=== PATIENT | male | born 1950 | race Caucasian/White ===

== ENCOUNTER 2019-06-03 18:42 | Inpatient (IN) | payer OTHER, MEDICARE, SELFPAY | END 2019-06-18 14:00 | disposition home health service (06) | DRG 561 | PROVIDERS: Admitting Provider Psychiatry & Neurology Neurology; PCP Internal Medicine; Visit Provider Psychiatry & Neurology Neurology | DX: S72.142D Displaced intertrochanteric fracture of left femur, subsequent encounter for closed fracture with routine healing (principal); S32.412D Displaced fracture of anterior wall of left acetabulum, subsequent encounter for fracture with routine healing; S32.502D Unspecified fracture of left pubis, subsequent encounter for fracture with routine healing; S52.691D Other fracture of lower end of right ulna, subsequent encounter for closed fracture with routine healing; M16.12 Unilateral primary osteoarthritis, left hip; Z23 Encounter for immunization; V13.4XXD Pedal cycle driver injured in collision with car, pick-up truck or van in traffic accident, subsequent encounter | CPT/HCPCS: 36415; 70450; 73521; 80048; 85025; 85027; 87081; 93880; 93970; 97110; 97116; 97150; 97162; 97166; 97530; 97535; A9270 ==

== ENCOUNTER 2020-11-30 17:41 | Outpatient (CLI) | payer MEDICARE, SELFPAY ==
--- NOTE | ~2020-11-30 | XR_ITS ---
XR chest 2V DATE: 11/30/2020 18:00 INDICATION: Preoperative evaluation. Hypertension. TECHNIQUE: PA and lateral views COMPARISON: 09/23/2018 PA and lateral chest FINDINGS: Normal heart size. Mild aortic unfolding. No hilar or mediastinal enlargement. There is chronic discoid scarring at the lateral left lung base. No pulmonary infiltrate or consolidation, pleural effusion or pulmonary vascular congestion or pneumo thorax. IMPRESSION: No active cardiopulmonary disease or significant change since 10/05/2018 Reviewed, dictated and finalized at location A. IMPRESSION: No active cardiopulmonary disease or significant change since 2018
== END 2020-11-30 17:42 | disposition home or self-care (01) ==
LOC: CHSLAB 17:45
PROVIDERS: PCP Internal Medicine; Visit Provider Internal Medicine
DX: I10 Essential (primary) hypertension (principal); Z01.818 Encounter for other preprocedural examination; Z12.5 Encounter for screening for malignant neoplasm of prostate
CPT/HCPCS: 71046

== ENCOUNTER 2023-04-03 16:13 | Inpatient (IN) | payer MEDICARE, SELFPAY ==
[2023-04-03] VITALS (7 sets, daily range): BP systolic 148–178; BP diastolic 88–100; PULSE 69–110; RESP 16–20; TEMP 35.8–36.1; O2SAT 97–99; BMI 30.4
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
[2023-04-03] MEDS: HYDROcodone/acetaminophen (*CRX) 5-325 MG TABLET 1 TAB PO (19:18)
[2023-04-03] MEDS: TETANUS,DIPHTHERIA,AC PERTUSSIS ADULT (0.5 ML) BOOSTRIX IM (19:18)
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
[2023-04-03] MEDS: CYCLOBENZAPRINE HCL 10 MG TABLET PO (21:28)
[2023-04-03] MEDS: ceFAZolin 2 GM/D5W 50 ML 2 GM/50 ML BAG IVPB (22:03)
[2023-04-03 22:17] LABS: Basophils Absolute Auto 0.1 K/mm3 (0.0-0.1); Basophils Percent Auto 0.5 % (0.2-1.2); Eosinophils Absolute Auto 0.1 K/mm3 (0-0.3); Eosinophils Percent Auto 0.7 % (0-4.4); Hematocrit 44.9 % (42.0-52.0); Hemoglobin 15.2 g/dL (14.0-18.0); Immature Granulocyte Absolute 0.03 K/mm3 (0.00-0.031); Immature Granulocyte Percent A 0.3 % (0-0.5); Lymphocytes Absolute Auto 1.81 K/mm3 (0.9-3.2); Lymphocytes Percent Auto 17.5 % (18.3-44.2); Mean Corpuscular HGB Conc 33.9 g/dl (32-36); Mean Corpuscular Hemoglobin 33.7 pg (26-34); Mean Corpuscular Volume 99.6 fl (80-100); Mean Platelet Volume 9.6 fl (7.4-10.4); Monocytes Absolute Auto 0.8 K/mm3 (0.1-0.6); Monocytes Percent Auto 7.6 % (2.6-8.5); Neutrophils Absolute Auto 7.6 K/mm3 (1.3-6.7); Neutrophils Percent Auto 73.4 % (45.5-73.1); Platelet Count Result 201 k/mm3 (150-375); Red Blood Count 4.51 M/mm3 (4.6-6.20); Red Cell Distribution Width 12.9 % (11.5-14.5); White Blood Count 10.3 K/mm3 (4.5-10.0)
[2023-04-03 22:30] LABS: Appearance Urine Clear (Clear); Bacteria Urine None Seen /hpf; Bilirubin Urine Negative (Negative); Blood Urine Negative (Negative); Color Urine Dark Yellow (Yellow); Glucose Urine UA Negative (Negative); Ketones Urine Trace mg/dL (Negative); Leukocyte Esterase Ur Negative LEU/UL (Negative); Need Manual Microscopic Reviewed; Nitrate Urine Negative (Negative); Protein Urine 1+ mg/dL (Negative); RBC Urine 0-2 /hpf (0-2); Specific Grav Ur 1.035 (1.001-1.035); Squamous Epithelial Cell Urine None seen /hpf (Few); WBC Urine 0-5 /hpf; pH Urine 5.5 (5.0-9.0)
[2023-04-03 22:32] LABS: Alanine Aminotransferase 29 U/L (6-50); Albumin Level 4.6 g/dL (3.5-5.1); Alkaline Phosphatase 90 U/L (38-126); Anion Gap 5 mmol/L (8-16); Aspartate Amino Transferase 29 U/L (17-59); Bilirubin,Total 1.1 mg/dL (0.2-1.3); Blood Urea Nitrogen 18 mg/dL (9-20); Calcium 9.8 mg/dL (8.4-10.2); Carbon Dioxide 28 mmol/L (22-30); Chloride 107 mmol/L (98-107); Estimated CRCL calculation 82 ml/min; Estimated Glomerular Filt Rate > 60; Glucose 119 mg/dL (65-110); Potassium 3.8 mmol/L (3.4-5.0); Sodium 140 mmol/L (137-145)
[2023-04-03 22:37] LABS: Add Urine Microscopic? YES
[2023-04-03] MEDS: KETOROLAC 30 MG/ML VIAL (*BKC) IV PUSH (23:27)
[2023-04-04] VITALS (12 sets, daily range): BP systolic 115–163; BP diastolic 66–96; PULSE 61–82; RESP 16–20; TEMP 35.6–37.1; O2SAT 95–98
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
--- NOTE | 2023-04-04 00:34 | ADMGEN ---
This patient, Mitchel Jim, was admitted to [facility] Surg Room 321-02. Patient/family oriented to hospital policies and general routines including ID bracelet, bed and alarms, visiting hours, pain management, procedures, bathroom and other care routines, personal items, smoking policy, room service/diet, and visiting hours. Information on how to activate the Rapid Response Team has been discussed. Patient/Family are encouraged to report perceived risks to care and to ask questions if they do not understand what they are told or what they should do.
[2023-04-04] MEDS: KETOROLAC 30 MG/ML VIAL (*BKC) IV PUSH ×4 (01:42→23:22)
[2023-04-04] MEDS: ceFAZolin 2 GM/D5W 50 ML 2 GM/50 ML BAG IVPB ×3 (05:34→22:23)
--- NOTE | 2023-04-04 08:06 | PCPTNOTE ---
Waiting for ortho recommendation prior to PT evaluation. Will follow.
--- NOTE | 2023-04-04 08:46 | PCOTNOTE ---
Waiting for ortho recommendation prior to OT evaluation. Will follow.
--- NOTE | 2023-04-04 10:15 | PHAR ---
The patient's home med of Doxycycline 20mg has been verified.
--- NOTE | 2023-04-04 10:52 | PM.IMPN ---
Progress Note: A&P Assessment and Plan (1) Fracture of nasal bones: Qualifiers: Encounter type: initial encounter Fracture type: closed Qualified Code(s): S02.2XXA - Fracture of nasal bones, initial encounter for closed fracture Code(s): S02.2XXA - Fracture of nasal bones, initial encounter for closed fracture Status: Acute Assessment and Plan: Continue pain management. Consult ENT for further management. (2) Open olecranon fracture: Qualifiers: Encounter type: initial encounter Laterality: right Open fracture type: open type I or II Qualified Code(s): S52.021B - Displaced fracture of olecranon process without intraarticular extension of right ulna, initial encounter for open fracture type I or II Code(s): S52.023B - Displaced fracture of olecranon process without intraarticular extension of unspecified ulna, initial encounter for open fracture type I or II Status: Acute Assessment and Plan: XR reveals?transversely oriented fracture line in the olecranon extending to the joint surface without displacement.? Continue pain management. Consult Orthopedic surgery for further management. Continue cefazolin 2 g IV q.8 hours orthopedic surgeon plans irrigation of the would (3) Hypertension: Code(s): I10 - Essential (primary) hypertension Status: Acute Assessment and Plan: Resume home BP meds. Monitor BP. Plan Code status full code. Admitted to Med surge unit as an observation. DVT prophylaxis with Lovenox. Subjective Date/time seen: 04/04/23 10:52 Interval history: I saw and examined patient today Patient feels better, pain is controlled, patient is afebrile, hemodynamically stable, denies dyspnea, no new issue events overnight Exam Narrative: GENERAL: Well-appearing, in no acute distress. HEAD: Normocephalic EYES: PERRLA, EOMI. No pain with EOMs. ENT: Nose with swelling and tenderness to the nasal bridge. Nose deviated to the L. Ecchymosis to the medial canthus and inferior to the orbit. Mucous membranes moist. Oropharynx without tonsillar hypertrophy exudate or other lesions. No fractured teeth. NECK: Supple. No midline spinous tenderness, step-offs or deformities. BACK: No midline spinous tenderness, step-offs or deformities. No overlying skin changes. CHEST: No respiratory distress. Clear to auscultation, no adventitious breath sounds. No chest wall tenderness. HEART: Regular rate and rhythm. No murmur heard. Normal peripheral pulses. ABDOMEN: Soft, nontender, normal active bowel sounds. EXTREMITIES: Tenderness overlying the proximal right humerus with full range of motion of shoulder. Tenderness to R olecranon with edema and overlying 1cm laceration. Ecchymosis to dorsum of third and second metacarpals with tenderness. Full range of motion of fingers. Full range of motion of SKIN: Multiple abrasions scattered throughout bilateral upper and lower extremities. 1 cm laceration over the right olecranon with mild bleeding, measuring ~1cm deep. NEURO: No focal deficits. Alert and oriented x3. Cranial nerves II through XII intact. Strength 5/5 in BUE and BLE. Sensation intact throughout. PSYCH: Normal mood and affect. Objective Data Vital Signs Vital Signs: Vital Signs - 24 hr 04/03/23 16:18 04/03/23 18:28 04/03/23 18:28 Temperature 97 F L Pulse Rate 110 H 81 81 Respiratory Rate 20 18 Blood Pressure 178/94 H 165/88 H Pulse Oximetry 97 99 Oxygen Delivery Room Air 04/03/23 20:00 04/03/23 21:00 04/03/23 22:00 Temperature Pulse Rate 74 69 74 Respiratory Rate 16 18 16 Blood Pressure 148/95 H 162/94 H 153/93 H Pulse Oximetry 98 99 98 Oxygen Delivery 04/03/23 23:00 04/03/23 23:40 04/04/23 01:30 Temperature 96.4 F L Pulse Rate 79 70 82 Respiratory Rate 16 16 18 Blood Pressure 148/97 H 174/100 H 142/92 H Pulse Oximetry 99 97 97 Oxygen Delivery 04/04/23 06:00 Temperature 96.1 F L Pul
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
--- NOTE | 2023-04-04 11:35 | WPDHPUPDATE1 ---
History and Physical Update Update Date/Time: 04/04/23 11:35 History and Physical has been reviewed, including an updated exam of the patient. There are NO changes in the patient's condition. Risks, benefits, and alternatives have been discussed and questions answered. Patient agrees to proceed with procedure.
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
[2023-04-04] MEDS: LACTATED RINGERS 1,000 ML 30 ML IV CONT (13:00)
[2023-04-04] MEDS: GENTAMICIN SULFATE INJ 450 MG in DEXTROSE 5% 100 ML 100 MG IVPB (13:09)
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
--- NOTE | 2023-04-04 13:19 | ECG_ITS ---
Measurements Intervals [place]in[place] Rate: 63 P: 35 RI: 144 QRS: 48 QRSD: 93 T: 20 QT: 382 QTc: 392 Interpretive Statements SINUS RHYTHM BASELINE WANDER- AVR, AVL, AVF, V2 NORMAL ECG NO PREVIOUS ECG AVAILABLE FOR COMPARISON Electronically Signed On 04-04-2023 14:06:17 CDT by Rich Shankar D.O.
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
[2023-04-04] MEDS: KCL 20 MEQ/D5/0.45% SOD CHL 1,000 ML 80 ML IV CONT (17:18)
[2023-04-04] MEDS: CYCLOBENZAPRINE HCL 10 MG TABLET PO (20:28)
[2023-04-04] MEDS: METOPROLOL SUCCINATE EXT REL 50 MG TABCR PO (20:28)
[2023-04-04] MEDS: FELODIPINE 5 MG TAB CR PO (20:29)
[2023-04-05] VITALS (11 sets, daily range): BP systolic 133–156; BP diastolic 70–91; PULSE 60–95; RESP 14–20; TEMP 36.2–37.5; O2SAT 91–99
[2023-04-05] MEDS: ceFAZolin 2 GM/D5W 50 ML 2 GM/50 ML BAG IVPB ×3 (05:15→20:58)
[2023-04-05] MEDS: KETOROLAC 30 MG/ML VIAL (*BKC) IV PUSH ×2 (05:35→11:54)
--- NOTE | 2023-04-05 07:15 | WPDHPUPDATE1 ---
History and Physical Update Update Date/Time: 04/05/23 07:15 History and Physical has been reviewed, including an updated exam of the patient. There are NO changes in the patient's condition. Risks, benefits, and alternatives have been discussed and questions answered. Patient agrees to proceed with procedure.
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
--- NOTE | 2023-04-05 08:14 | PM.IMPN ---
Progress Note: A&P Assessment and Plan (1) Fracture of nasal bones: Qualifiers: Encounter type: initial encounter Fracture type: closed Qualified Code(s): S02.2XXA - Fracture of nasal bones, initial encounter for closed fracture Code(s): S02.2XXA - Fracture of nasal bones, initial encounter for closed fracture Status: Acute Assessment and Plan: Continue pain management. Consult ENT for further management. Plain surgical treatment today (2) Open olecranon fracture: Qualifiers: Encounter type: initial encounter Laterality: right Open fracture type: open type I or II Qualified Code(s): S52.021B - Displaced fracture of olecranon process without intraarticular extension of right ulna, initial encounter for open fracture type I or II Code(s): S52.023B - Displaced fracture of olecranon process without intraarticular extension of unspecified ulna, initial encounter for open fracture type I or II Status: Acute Assessment and Plan: XR reveals?transversely oriented fracture line in the olecranon extending to the joint surface without displacement.? Continue pain management. Consult Orthopedic surgery for further management. Continue cefazolin 2 g IV q.8 hours orthopedic surgeon performed irrigation of the would 04/04 (3) Hypertension: Code(s): I10 - Essential (primary) hypertension Status: Acute Assessment and Plan: Resume home BP meds. Monitor BP. Plan Code status full code. Admitted to Med surge unit as an observation. DVT prophylaxis with Lovenox. Subjective Date/time seen: 04/05/23 08:14 Interval history: I saw and examined patient today patient still has right elbow pain, worse after wound irrigation, but tolerable,, patient is afebrile, hemodynamically stable, denies dyspnea, no new issue events overnight Exam Narrative: GENERAL: Well-appearing, in no acute distress. HEAD: Normocephalic EYES: PERRLA, EOMI. No pain with EOMs. ENT: Nose with swelling and tenderness to the nasal bridge. Nose deviated to the L. Ecchymosis to the medial canthus and inferior to the orbit. Mucous membranes moist. Oropharynx without tonsillar hypertrophy exudate or other lesions. No fractured teeth. NECK: Supple. No midline spinous tenderness, step-offs or deformities. BACK: No midline spinous tenderness, step-offs or deformities. No overlying skin changes. CHEST: No respiratory distress. Clear to auscultation, no adventitious breath sounds. No chest wall tenderness. HEART: Regular rate and rhythm. No murmur heard. Normal peripheral pulses. ABDOMEN: Soft, nontender, normal active bowel sounds. EXTREMITIES: Tenderness overlying the proximal right humerus with full range of motion of shoulder. Tenderness to R olecranon with edema and overlying 1cm laceration. Ecchymosis to dorsum of third and second metacarpals with tenderness. Full range of motion of fingers. Full range of motion of SKIN: Multiple abrasions scattered throughout bilateral upper and lower extremities. 1 cm laceration over the right olecranon with mild bleeding, measuring ~1cm deep. NEURO: No focal deficits. Alert and oriented x3. Cranial nerves II through XII intact. Strength 5/5 in BUE and BLE. Sensation intact throughout. PSYCH: Normal mood and affect. Objective Data Vital Signs Vital Signs: Vital Signs - 24 hr 04/04/23 09:45 04/04/23 13:23 04/04/23 14:50 Temperature 98.0 F 97.5 F L Pulse Rate 74 68 Respiratory Rate 16 16 Blood Pressure 163/96 H 115/66 Pulse Oximetry 98 95 Oxygen Delivery Room Air Room Air Simple Face Mask Oxygen Flow Rate 8 04/04/23 15:05 04/04/23 15:20 04/04/23 15:50 Temperature 97.9 F Pulse Rate 68 61 64 Respiratory Rate 20 16 18 Blood Pressure 124/81 128/77 151/77 H Pulse Oximetry 97 95 96 Oxygen Delivery Simple Face Mask Room Air Oxygen Flow Rate 8 04/04/23 16:05 04/04/23 16:35 04/04/23 17:35 Temperature 98.0 F 98.4 F 98.7
[2023-04-05] MEDS: SENNA/DOCUSATE SODIUM TABLET 2 TAB PO ×2 (08:32→17:07)
[2023-04-05] MEDS: LOSARTAN POTASSIUM 100 MG TABLET PO (08:32)
[2023-04-05] MEDS: hydroCHLOROthiazide 12.5 MG CAPSULE PO (08:32)
[2023-04-05] MEDS: polyethylene glycoL 3350 17 GM POWD.PACK PO (08:33)
[2023-04-05 10:54] LABS: Hematocrit 41.4 % (42.0-52.0); Hemoglobin 14.1 g/dL (14.0-18.0); Mean Corpuscular HGB Conc 34.1 g/dl (32-36); Mean Corpuscular Hemoglobin 34.1 pg (26-34); Mean Corpuscular Volume 100.2 fl (80-100); Mean Platelet Volume 9.6 fl (7.4-10.4); Platelet Count Result 154 k/mm3 (150-375); Red Blood Count 4.13 M/mm3 (4.6-6.20); Red Cell Distribution Width 13.1 % (11.5-14.5); White Blood Count 6.3 K/mm3 (4.5-10.0)
[2023-04-05 11:04] LABS: Anion Gap 4 mmol/L (8-16); Blood Urea Nitrogen 19 mg/dL (9-20); Calcium 9.3 mg/dL (8.4-10.2); Carbon Dioxide 28 mmol/L (22-30); Chloride 107 mmol/L (98-107); Estimated CRCL calculation 83 ml/min; Estimated Glomerular Filt Rate > 60; Glucose 100 mg/dL (65-110); Potassium 4.5 mmol/L (3.4-5.0); Sodium 139 mmol/L (137-145)
--- NOTE | 2023-04-05 12:35 | PM.PNORT ---
Progress Note: A&P Assessment and Plan (1) Open olecranon fracture: Qualifiers: Encounter type: subsequent encounter Laterality: right Open fracture type: open type I or II Fracture healing: with routine healing Qualified Code(s): S52.021E - Displaced fracture of olecranon process without intraarticular extension of right ulna, subsequent encounter for open fracture type I or II with routine healing Code(s): S52.023B - Displaced fracture of olecranon process without intraarticular extension of unspecified ulna, initial encounter for open fracture type I or II Status: Acute Assessment and Plan: Postoperative day 1 debridement of right elbow open fracture with closure and closure of hand laceration. Patient stable at this time. Splint and dressing in place. Continue pain control and edema control. Okay for discharge from orthopedic standpoint. Follow-up appointment made April 12. Subjective Subjective Date/Time Seen: 04/05/23 12:35 Post Op day: 1 Principal diagnosis: Open right olecranon fracture and hand laceration Interval history: Patient awake and alert. Complains of pain over the posterior elbow. Surgical findings and treatment reviewed with the patient. Exam Const: General: healthy appearing; No in distress or confusion Orientation/consciousness: patient oriented x3 and No confusion HENMT: Head: signs of trauma and contusion Eyes: Conjunctivae: conjunctivae normal Sclera: sclerae normal Resp: Effort & Inspection: normal respiratory effort and no audible wheezes Neuro: General: patient oriented x3 and No confusion Extrem: Other: Right upper extremity splint and dressing in place. Able to move fingers and thumb. Good capillary refill and good sensation to touch. Psych: Affect: normal affect Objective Data Vital Signs Vital Signs: Vital Signs - 24 hr 04/04/23 13:23 04/04/23 14:50 04/04/23 15:05 Temperature 98.0 F 97.5 F L Pulse Rate 74 68 68 Respiratory Rate 16 16 20 Blood Pressure 163/96 H 115/66 124/81 Pulse Oximetry 98 95 97 Oxygen Delivery Room Air Simple Face Mask Simple Face Mask Oxygen Flow Rate 8 8 04/04/23 15:20 04/04/23 15:50 04/04/23 16:05 Temperature 97.9 F 98.0 F Pulse Rate 61 64 66 Respiratory Rate 16 18 18 Blood Pressure 128/77 151/77 H 158/85 H Pulse Oximetry 95 96 97 Oxygen Delivery Room Air Oxygen Flow Rate 04/04/23 16:35 04/04/23 17:35 04/04/23 20:28 Temperature 98.4 F 98.7 F Pulse Rate 76 73 70 Respiratory Rate 18 18 Blood Pressure 155/88 H 143/90 H Pulse Oximetry 97 97 Oxygen Delivery Oxygen Flow Rate 04/04/23 21:17 04/05/23 01:23 04/05/23 05:23 Temperature 97.4 F L 98.0 F 98.5 F Pulse Rate 70 75 74 Respiratory Rate 20 18 20 Blood Pressure 143/90 H 147/91 H 154/91 H Pulse Oximetry 97 95 94 Oxygen Delivery Oxygen Flow Rate 04/05/23 08:40 04/05/23 08:00 Temperature Pulse Rate Respiratory Rate Blood Pressure Pulse Oximetry Oxygen Delivery Room Air Room Air Oxygen Flow Rate Intake/Output Intake/Output: Intake & Output 04/02/23 04/03/23 04/04/23 04/05/23 23:59 23:59 23:59 23:59 Intake Total 50 1841.25 100 Output Total 300 Balance 50 1541.25 100 Meds/Results Medications: Active Medications Generic Name Dose Route Start Last Admin Trade Name Freq PRN Reason Stop Dose Admin Acetaminophen 650 mg 04/03/23 23:02 Acetaminophen 325 Mg Tablet PO Q4H PRN Mild Pain (1-3) or Fever Felodipine 5 mg 04/04/23 21:00 04/04/23 20:29 Felodipine 5 Mg Tab Cr PO 5 mg HS BILLY Administration Hydrochlorothiazide 12.5 mg 04/04/23 09:00 04/05/23 08:32 Hydrochlorothiazide 12.5 Mg Capsule PO 05/04/23 08:59 12.5 mg DAILY BILLY Administration Cefazolin Sodium 2 gm in 50 mls @ 100 mls/hr 04/04/23 06:00 04/05/23 05:15 Ancef 2 Gm/D5w 50 Ml IVPB 100 mls/hr Q8H BILLY Administration Potassium Chloride/Dextrose/Sod Cl 1,000 mls @ 80 ml
--- NOTE | 2023-04-05 12:46 | PCPTNOTE ---
On 04/05/23, the student, COURTNEY Bustamante, provided care and completed [facility] documentation on this patient. I have reviewed the student's documentation and agree with the findings.
--- NOTE | 2023-04-05 13:56 | PC.NURSE ---
This patient, Mitchel Jim, was transferred to Pre-op on 04/05/23 at 1356. Personal belongings sent with patient. Report given to [ ]. Appropriate documentation sent with patient.
[2023-04-05] MEDS: LACTATED RINGERS 1,000 ML 30 ML IV CONT (14:00)
--- NOTE | 2023-04-05 14:18 | P.PNAN_ITS ---
Anes - Eval Final PreProcedure Day of Procedure 04/05/23 14:18 Patient weight: obese Heart: regular rate and rhythm Lungs: clear to auscultation Airway: Mallampati scale class II Neurological: alert and oriented Last oral intake: >/= 8 hours ASA classification: III Emergent: no Anesthetic plan: proceed Anesthesia type and monitoring: general ETT and standard monitoring Results Review: All pre-operative results and documents have been reviewed as part of the pre- operative evaluation. Informed Consent: The patient's anesthetic plan and its attendant risks and benefits were discussed with the patient/family/POA. Questions were solicited and answers provided to the satisfaction of the patient/family/POA.
--- NOTE | 2023-04-05 15:54 | W.PM.PROC2 ---
Procedure Note - Detailed Date of Procedure 04/05/23 Pre-op Diagnosis Nasal Bone Fractures, nasal septal fracture Post-op Diagnosis Same Procedure Performed close reductionnasal bone closed reduction nasal septum Surgeon Jose L Sauer MD Anesthesia General Indications see above Findings nasal septum was fractured to the right outfractured to the left still deviated , nasal bone was fractured concave the right side I outfractured this great cosmetic appearance Description of Procedure patient identified consent verified preop. Patient brought to the operating room. Time-out performed. General anesthesia induced endotracheal tube secured. Patient prepped draped positioned procedure confirmed 2nd time-out performed. Afrin-soaked pledgets placed in the nasal cavities for 5 minutes then removed. Nasal septum fracture to the left right nasal bone outfractured brown tape placed followed by Aquaplast nasal splint followed by more brown tape. Bleeding was minimal about 1 cc. Bilateral nasal passages were suctioned the choana. Care the patient given back to Anesthesiology. I performed all dictated portions of procedure. There were no complications. In addition, Gelfoam was placed deep to the right nasal bone to stent it outwards. Estimated Blood Loss 2 Urine Output 150 Drains No Packing Yes (Gelfoam) Pathology None sent Complications No immediate complications Condition Stable Disposition PACU [facility] Billing Surgery - Charge Forward: Surgery Billing
[2023-04-05] MEDS: FELODIPINE 5 MG TAB CR PO (20:43)
[2023-04-05] MEDS: METOPROLOL SUCCINATE EXT REL 50 MG TABCR PO (20:43)
[2023-04-06 00:12] VITALS: BP 131/71; PULSE 73; RESP 18; TEMP 36.6; O2SAT 93
[2023-04-06 04:00] VITALS: BP 135/69; PULSE 76; RESP 18; TEMP 36.1; O2SAT 95
[2023-04-06] MEDS: ceFAZolin 2 GM/D5W 50 ML 2 GM/50 ML BAG IVPB (06:00)
[2023-04-06 08:00] VITALS: BP 149/79; PULSE 69; RESP 14; TEMP 36.3; O2SAT 96
[2023-04-06] MEDS: LOSARTAN POTASSIUM 100 MG TABLET PO (08:32)
--- NOTE | 2023-04-06 08:38 | PM.IMPN ---
Progress Note: A&P Assessment and Plan (1) Fracture of nasal bones: Qualifiers: Encounter type: initial encounter Fracture type: closed Qualified Code(s): S02.2XXA - Fracture of nasal bones, initial encounter for closed fracture Code(s): S02.2XXA - Fracture of nasal bones, initial encounter for closed fracture Status: Acute Assessment and Plan: Continue pain management. Consult ENT for further management. surgical treatment 04/05 (2) Open olecranon fracture: Qualifiers: Encounter type: subsequent encounter Fracture healing: with routine healing Laterality: right Open fracture type: open type I or II Qualified Code(s): S52.021E - Displaced fracture of olecranon process without intraarticular extension of right ulna, subsequent encounter for open fracture type I or II with routine healing Code(s): S52.023B - Displaced fracture of olecranon process without intraarticular extension of unspecified ulna, initial encounter for open fracture type I or II Status: Acute Assessment and Plan: XR reveals?transversely oriented fracture line in the olecranon extending to the joint surface without displacement.? Continue pain management. Consult Orthopedic surgery for further management. Continue cefazolin 2 g IV q.8 hours orthopedic surgeon performed irrigation of the would 04/04 afeb and hemodynamically stable (3) Hypertension: Code(s): I10 - Essential (primary) hypertension Status: Acute Assessment and Plan: Resume home BP meds. Monitor BP. Plan Code status full code. Admitted to Med surge unit as an observation. DVT prophylaxis with Lovenox. Subjective Date/time seen: 04/06/23 08:38 Interval history: I saw and examined patient today patient still has right elbow pain, and nose pain, pain is tolerable,,, patient is afebrile, hemodynamically stable, denies dyspnea, no new issue events overnight Exam Narrative: GENERAL: Well-appearing, in no acute distress. HEAD: Normocephalic EYES: PERRLA, EOMI. No pain with EOMs. ENT: Nose with swelling and tenderness to the nasal bridge. Ecchymosis to the medial canthus and inferior to the orbit. Mucous membranes moist. Oropharynx without tonsillar hypertrophy exudate or other lesions. No fractured teeth. NECK: Supple. No midline spinous tenderness, step-offs or deformities. BACK: No midline spinous tenderness, step-offs or deformities. No overlying skin changes. CHEST: No respiratory distress. Clear to auscultation, no adventitious breath sounds. No chest wall tenderness. HEART: Regular rate and rhythm. No murmur heard. Normal peripheral pulses. ABDOMEN: Soft, nontender, normal active bowel sounds. EXTREMITIES: Tenderness overlying the proximal right humerus with full range of motion of shoulder. Tenderness to R olecranon with edema and overlying 1cm laceration. Ecchymosis to dorsum of third and second metacarpals with tenderness. Full range of motion of fingers. Full range of motion of SKIN: Multiple abrasions scattered throughout bilateral upper and lower extremities. 1 cm laceration over the right olecranon with mild bleeding, measuring ~1cm deep. NEURO: No focal deficits. Alert and oriented x3. Cranial nerves II through XII intact. Strength 5/5 in BUE and BLE. Sensation intact throughout. PSYCH: Normal mood and affect. Objective Data Vital Signs Vital Signs: Vital Signs - 24 hr 04/05/23 08:40 04/05/23 14:00 04/05/23 14:00 Temperature 97.1 F L 98.3 F Pulse Rate 67 64 Respiratory Rate 18 18 Blood Pressure 149/84 H 156/77 H Pulse Oximetry 94 96 Oxygen Delivery Room Air Room Air Oxygen Flow Rate 04/05/23 15:25 04/05/23 15:40 04/05/23 15:55 Temperature 97.4 F L Pulse Rate 95 70 65 Respiratory Rate 16 14 15 Blood Pressure 134/72 142/83 H 147/81 H Pulse Oximetry 96 99 93 Oxygen Delivery Simple Face Mask Room Air Room Air Oxygen Flow Rate 10 04/05/23 16:10 07
[2023-04-06 09:01] VITALS: O2SAT 96
[2023-04-06] MEDS: CYCLOBENZAPRINE HCL 10 MG TABLET PO (10:58)
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
[2023-04-06 12:00] VITALS: BP 156/90; PULSE 84; RESP 16; TEMP 36.7; O2SAT 96
== END 2023-04-06 12:58 | disposition home or self-care (01) | DRG 512 ==
LOC: ANHED 23:14 → ANH3MEDSUR 23:41
PROVIDERS: Orthopaedic Surgery; Otolaryngology; Admitting Provider Internal Medicine; Emergency Provider Physician Assistant; PCP Internal Medicine; Visit Provider Hospitalist
PROC: 0PBK0ZZ Excision of Right Ulna, Open Approach (ICD-10-PCS; principal; 2023-04-04 14:00)
PROC: 0NSBXZZ Reposition Nasal Bone, External Approach (ICD-10-PCS; CPT 21315; principal; 2023-04-05 14:00)
DX: S52.021B Displaced fracture of olecranon process without intraarticular extension of right ulna, initial encounter for open fracture type I or II (principal); S61.411A Laceration without foreign body of right hand, initial encounter; S02.2XXA Fracture of nasal bones, initial encounter for closed fracture; I10 Essential (primary) hypertension; V19.9XXA Pedal cyclist (driver) (passenger) injured in unspecified traffic accident, initial encounter
CPT/HCPCS: 29505; 36415; 70450; 70486; 73030; 73070; 73130; 80048; 80053; 81001; 85025; 85027; 90471; 90715; 93005; 96365; 96375; 97161; 97165; 97530; 97535; 99285; A4565; A9270; G0378; J0330; J0690; J1100; J1580; J1885; J2250; J2405; J2704; J3010; J3480; J7120